=== PATIENT | male | born 1980 | race Caucasian/White ===

== ENCOUNTER 2021-05-10 23:46 | Emergency (ER) | payer OTHER, SELFPAY ==
[2021-05-10 23:55] VITALS: BP 125/59; PULSE 69; RESP 16; TEMP 36.1; O2SAT 97; BMI 34.4
--- NOTE | 2021-05-11 00:20 | ED.SKABFB ---
HPI - Skin/Abscess/Foreign Bdy General Chief complaint: Extremity Injury, Lower Stated complaint: Toe Pain Time Seen by Provider: 05/11/21 00:13 Source: patient Mode of arrival: ambulatory Limitations: no limitations History of Present Illness HPI narrative: states right great toe pain for 1 day there is slight redness to toe and has had ingrown nail in the past which she partially clipped himself and feels like his recurring again today. Denies any foot swelling or redness extending way from the toe. No fever chills. Does report that he wear steel-toed boots and that makes his symptoms worse. Onset (ago): day(s) Tetanus up to date: yes Location: R foot ( Great toe) Severity: severe ( at night it will allow him to go to sleep is throbbing) Severity scale (1-10): 8 Pain Consistency: intermittent Relieving factors: immobilization Exacerbating factors: palpation Context: none Associated symptoms: denies other symptoms Treatments prior to arrival: none Related Data Previous Rx's Medication Instructions Recorded clindamycin HCl 300 mg PO BID 7 Days #14 cap 05/11/21 ibuprofen 800 mg PO Q8H PRN #20 tab 05/11/21 oxycodone 5 mg PO Q12H PRN 3 Days #7 tab 05/11/21 Allergies Allergy/AdvReac Type Severity Reaction Status Date / Time No Known Allergies Allergy Verified 05/11/21 00:04 Review of Systems Review of Systems: Constitutional: No Weight loss, No Fever, No Chills, No Night Sweats, No Fatigue, No Malaise ENT/Mouth: No Hearing loss, No Ear Pain, No Nasal Congestion, No Sinus Pain, No Hoarseness, No sore throat, No Rhinorrhea, No Swallowing Difficulty Eyes: No Eye Pain, No Swelling, No Redness, No Foreign Body, No Discharge, No Vision Changes Cardiovascular: No Chest Pain, No SOB, No Dyspnea on Exertion, No Orthopnea, No Edema, No Palpitations Respiratory: No Cough, No Sputum, No Wheezing, No Smoke Exposure, No Dyspnea Gastrointestinal: No Nausea, No Vomiting, No Diarrhea, No Constipation, No abdominal Pain, No Hematochezia, No Melena Genitourinary: no irregular bleeding, No Dysuria, No Urinary Frequency, No Hematuria, No Urinary Incontinence, No Urgency, No Flank Pain, No Urinary Flow Changes, No Hesitancy Musculoskeletal: No joint pain, No Myalgias, No Joint Swelling Skin: No Skin Lesions, No rash , as in for HPI Neuro: No Weakness, No Numbness, No Paresthesias, No Loss of Consciousness, No Dizziness, No Headache Psych: No Social Issues Heme/Lymph: No Bruising, No Bleeding,No Lymphadenopathy Endocrine: No Polyuria, No Polydipsia, No Temperature Intolerance Yes all other systems are reviewed and are negative [facility] Past Medical History Medical History (Updated 05/11/21 @ 00:22 by Kofi Galarza NP) H/O blood clots HIV (human immunodeficiency virus infection) Social History Social History Advance Directives: No Physical Exam Vital Signs: Vital Signs: Last Vital Signs Temp 96.9 F 05/10/21 23:55 Pulse 69 05/10/21 23:55 Resp 16 05/10/21 23:55 BP 125/59 L 05/10/21 23:55 Pulse Ox 97 05/10/21 23:55 Body Mass Index 34.4 reviewed Const: General: cooperative and healthy appearing; No acute distress or intoxicated appearing Nutritional Appearance: average body habitus Orientation/consciousness: patient oriented x3 HENMT: Head: Yes normal to inspection Ears: hearing grossly normal bilaterally Eyes: General: appearance normal, both eyes and all related structures Visual Celaya: normal visual celaya by confrontation Neck: Neck: Yes normal visual inspection, No positive Brudzinski's sign, No positive Kernig's sign and No tender Thyroid: Thyroid normal Resp: Effort & Inspection: normal respiratory effort : General: Yes no CVA tenderness Back/Spine/Pelvis: Back: no CVA tenderness Skin: General skin exam: no rashes or lesions noted Neuro: General: patient oriented x3 Extrem: General: Yes normal to inspection Ankle/foot/toe images: 1. great toenail is very minimally imbedded into the skin fold. There is very minimal erythema localized to the lateral aspect. Tender palpation. Course Course Course Narrative: Localized cellulitis with ingrown toenail. Will defer on removal at this time would like to try S consult, antibiotics and follow-up with podiatry. Mass pat reviewed no concerning pattern. Discharge Plan Discharge Clinical Impression: Ingrown nail of great toe of right foot Patient Disposition: Home, Self-Care Instructions: Ingrown Nail (ED) Additional Instructions: Epson salt soaks take your antibiotics as prescribed For [id number] pain take ibuprofen/ Tylenol For severe pain take oxycodone; do not take this medication well anticipating on driving or doing any activity that requires focus and attention. Do not mix any medications or alcohol. This medication has high risk for abuse /dependence only use when absolutely needed. Follow-up with hedge trimmer for further evaluation and treatment. Return if any concerns or worsening symptoms Thank Prescriptions: New clindamycin HCl 300 mg capsule 300 mg PO BID 7 Days Qty: 14 RF: 0 ibuprofen 800 mg tablet 800 mg PO Q8H PRN (Reason: pain) Qty: 20 RF: 0 oxycodone 5 mg tablet 5 mg PO Q12H PRN (Reason: pain) 3 Days Qty: 7 RF: 0 Referrals: Reggie Mi [Physician] - 3 days
[2021-05-11] MEDS: Clindamycin HCL 300 MG CAPSULE PO (00:24)
[2021-05-11] MEDS: Ibuprofen 800 MG TABLET PO (00:24)
== END 2021-05-11 00:34 | disposition home or self-care (01) ==
PROVIDERS: Emergency Provider Internal Medicine; PCP Internal Medicine Infectious Disease
DX: L60.0 Ingrowing nail (principal); L03.115 Cellulitis of right lower limb; M79.674 Pain in right toe(s)
CPT/HCPCS: 99283; 99284

== ENCOUNTER 2023-10-09 01:57 | Inpatient (IN) | payer OTHER, SELFPAY ==
[2023-10-09] VITALS (9 sets, daily range): BP systolic 90–108; BP diastolic 45–62; PULSE 79–95; RESP 12–24; TEMP 36.3–38.3; O2SAT 92–98; BMI 36.2
[2023-10-09 02:26] LABS: MANUAL DIFF FLAG NO
[2023-10-09 02:27] LABS: Basophils Absolute Auto 0.1 X10*3/uL (0.0-0.2); Basophils Percent Auto 0.3 % (0-2); Hematocrit 46.1 % (42.0-52.0); Hemoglobin 15.5 g/dl (14.0-18.0); Imm Gran Abs Auto 0.18 X10*3/uL (0.00-0.03); Imm Gran Pct Auto 0.9 % (0.0-0.4); Lymphocytes Absolute Auto 1.3 X10*3/uL (1.2-4.9); Lymphocytes Percent Auto 6.4 % (20-40); Mean Corpuscular HGB Conc 33.6 g/dl (31.0-36.0); Mean Corpuscular Hemoglobin 32.8 pg (27.0-33.0); Mean Corpuscular Volume 97.7 fL (80.0-98.0); Mean Platelet Volume 9.8 fL (9.4-12.4); Monocytes Absolute Auto 1.3 X10*3/uL (0.1-1.2); Monocytes Percent Auto 6.1 % (2-11); Neutrophils Absolute Auto 17.8 x10*3/uL (2.0-8.3); Neutrophils Percent Auto 86.3 % (45-73); Platelet Count 152 X10*3/uL (160-400); Red Blood Count 4.72 X10*6/uL (4.60-5.80); Red Cell Distribution Width 12.5 % (11.0-16.0); White Blood Count 20.6 X10*3/uL (4.8-10.8)
[2023-10-09 02:42] LABS: Alanine Aminotransferase 21 U/L (0-40); Albumin Level 3.9 g/dL (3.5-5.0); Alkaline Phosphatase 127 U/L (39-117); Anion Gap 14 (12-20); Aspartate Amino Transferase 23 U/L (5-37); Bilirubin Total 0.8 mg/dL (0.0-1.0); Blood Urea Nitrogen 11 mg/dL (9-16); Carbon Dioxide 22 mmol/L (22-29); Chloride 105 mmol/L (96-108); Creatinine Clr Calc Pharmacy 103.9; Estimated Glomerular Filt Rate > 60; Glucose Random 102 mg/dL (60-115); Potassium 4.5 mmol/L (3.3-5.1); Sodium 136 mmol/L (135-145); Total Protein 7.2 g/dL (6.5-8.0)
--- NOTE | 2023-10-09 03:47 | ED.GENADULT ---
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 with frequent cellulitis of the leg comes here for the redness of the right leg started earlier today with lot of chills no nausea no vomiting patient feel pain traveling in the thigh area, no open wound Related Data Home Medications Medication Instructions Recorded Confirmed emtricitabine 200 mg-rilpivirine 1 tab PO QPM 10/09/23 10/09/23 25 mg-tenofovir alafenam 25 mg tablet (Odefsey) rivaroxaban 20 mg tablet (Xarelto) 20 mg PO QPM 10/09/23 10/09/23 Allergies Allergy/AdvReac Type Severity Reaction Status Date / Time No Known Allergies Allergy Verified 05/11/21 00:04 Review of Systems Review of Systems: Yes all other systems are reviewed and are negative PMFSH Past Medical History Medical History HIV (human immunodeficiency virus infection) H/O blood clots Social History Smoked in Last 30 Days: Yes Advance Directives: No Advance Directives Information Provided: Yes Physical Exam ED Vital Signs: Vital Signs - 24 hr 10/09/23 02:09 10/09/23 05:59 10/09/23 06:43 Temperature 99.8 F 99.8 F 99.6 F Pulse Rate 88 90 85 Respiratory Rate 18 20 Blood Pressure 108/53 L 102/50 L 99/56 L Pulse Oximetry 95 94 98 Oxygen Delivery Method Room Air Room Air Room Air BMI result Body Mass Index 36.2 Appearance: Alert. Oriented X3. No acute distress. ENT: Pharynx normal. Oral Mucosa moist Neck: Normal inspection. Neck supple. CVS: Normal heart rate and rhythm. Pulses normal. Respiratory: No respiratory distress. Equal air entry bilateral, no wheezing/rales/rhonchi Abdomen: Soft and nontender. Bowel sounds are present, no mass palpable, no CVA tenderness Skin: Skin warm and dry. Cellulitic changes right lower extremity Normal skin turgor. Extremities: No lower extremity edema. No calf tenderness erythema of the right lower extremity morning distal half of the leg sparing the foot Neuro: Oriented X 3. No motor deficit. No sensory deficit.No cerebellar signs , cranial nerves II-XII intact Medications Administered Generic Name Dose Route Start Last Admin Trade Name Freq PRN Reason Stop Dose Admin Cefazolin Sodium/Dextrose 2 gm in 50 mls @ 100 mls/hr 10/09/23 06:00 10/09/23 06:16 Ancef IV 100 mls/hr Q8H ESTELLA Administration Sodium Chloride 3,436.86 mls @ 3,436.86 mls/hr 10/09/23 06:45 10/09/23 06:50 Ns 30 ml/kg infuse over 1 hr (3436.86 ml) 10/09/23 07:44 3,436.86 mls/hr IV Administration .Q1H STA Discontinued Medications Generic Name Dose Route Start Last Admin Trade Name Freq PRN Reason Stop Dose Admin Sodium Chloride 1,000 mls @ 999 mls/hr 10/09/23 03:47 10/09/23 06:37 Ns IV 10/09/23 04:47 Infused .Q1H1M ONE Infusion Vancomycin HCl 2,000 mg in 500 mls @ 250 mls/hr 10/09/23 04:00 10/09/23 06:37 Vancomycin/Ns IV 10/09/23 05:59 Infused ONCE ONE Infusion Morphine Sulfate 4 mg 10/09/23 03:48 10/09/23 04:09 Morphine Sulfate 4 Mg/Ml Cartridge IVPUSH 10/09/23 03:49 4 mg ONCE ONE Administration Protocol Medical Decision Making Medical Decision Making [facility] Narrative: Patient has significant rapidly spreading cellulitis with leukocytosis will admit patient for IV antibiotics Differential Diagnosis Differential Diagnoses: The differential diagnosis associated with the presentation includes Cellulitis/bacteremia/DVT Admission/Observation Consideration of admission/observation: Escalation of care including admission/observation considered Consult Healthcare Provider Management of the patient was discussed with: Hospitalist Lab Data [facility] Lab Attestation statement: I reviewed the patient's lab results. 10/09/23 06:08 10/09/23 06:08 Labs: Lab Results 10/09/23 10/09/23 10/09/23 Range/Units 02:22 03:58 04:19 WBC 20.6 H (4.8-10.8) X10*3/uL RBC 4.72 (4.60-5.80) X10*6/uL Hgb 15.5 (14.0-18.0) g/dl Hct 46.1 (42.0-52.0) % MCV 97.7 (80.0-98.0) fL MCH 32.8 (27.0-33.0) pg MCHC 33.6 (31.0-36.0) g/dl RDW 12.5 (11.0-16.0) % Plt Count 152 L (160-400) X10*3/uL MPV 9.8 (9.4-12.4) fL Immature Gran % (Auto) 0.9 H (0.0-0.4) % Neut % (Auto) 86.3 H (45-73) % Lymph % (Auto) 6.4 L (20-40) % Kings % (Auto) 6.1 (2-11) % Eos % (Auto) 0.0 (0-4) % Baso % (Auto) 0.3 (0-2) % Lymph # (Auto) 1.3 (1.2-4.9) X10*3/uL Kings # (Auto) 1.3 H (0.1-1.2) X10*3/uL Eos # (Auto) 0.0 (0.0-0.4) X10*3/uL Baso # (Auto) 0.1 (0.0-0.2) X10*3/uL Abs Immat Gran (auto) 0.18 H (0.00-0.03) X10*3/uL Absolute Neuts (auto) 17.8 H (2.0-8.3) x10*3/uL Absolute Nucleated RBC 0.000 (0.0-0.012) X10*3/uL Nucleated RBC % (auto) 0.0 (0.0-0.2) /100WBC Smear Tech's Comments PT 20.6 H (11.1-13.3) SEC INR 1.7 H (0.9-1.1) APTT 37.6 H (26.0-36.4) SEC D-Dimer High Sensitivty < 150 NG/ML Sodium 136 (135-145) mmol/L Potassium 4.5 (3.3-5.1) mmol/L Chloride 105 (96-108) mmol/L Carbon Dioxide 22 (22-29) mmol/L Anion Gap 14 (12-20) BUN 11 (9-16) mg/dL Creatinine 1.15 (0.5-1.4) mg/dL Estim Creat Clear Calc 103.9 Estimated GFR > 60 Random Glucose 102 (60-115) mg/dL Lactic Acid 2.0 (0.5-2.0) mmol/L Calcium 9.0 (8.4-10.2) mg/dL Total Bilirubin 0.8 (0.0-1.0) mg/dL AST 23 (5-37) U/L ALT 21 (0-40) U/L Alkaline Phosphatase 127 H (39-117) U/L Total Protein 7.2 (6.5-8.0) g/dL Albumin 3.9 (3.5-5.0) g/dL 10/09/23 Range/Units 06:08 WBC 23.9 H (4.8-10.8) X10*3/uL RBC 4.22 L (4.60-5.80) X10*6/uL Hgb 14.0 (14.0-18.0) g/dl Hct 41.9 L (42.0-52.0) % MCV 99.3 H (80.0-98.0) fL MCH 33.2 H (27.0-33.0) pg MCHC 33.4 (31.0-36.0) g/dl RDW 12.6 (11.0-16.0) % Plt Count 144 L (160-400) X10*3/uL MPV 10.1 (9.4-12.4) fL Immature Gran % (Auto) 1.9 H (0.0-0.4) % Neut % (Auto) 83.1 H (45-73) % Lymph % (Auto) 7.4 L (20-40) % Kings % (Auto) 7.0 (2-11) % Eos % (Auto) 0.2 (0-4) % Baso % (Auto) 0.4 (0-2) % Lymph # (Auto) 1.8 (1.2-4.9) X10*3/uL Kings # (Auto) 1.7 H (0.1-1.2) X10*3/uL Eos # (Auto) 0.1 (0.0-0.4) X10*3/uL Baso # (Auto) 0.1 (0.0-0.2) X10*3/uL Abs Immat Gran (auto) 0.45 H (0.00-0.03) X10*3/uL Absolute Neuts (auto) 19.9 H (2.0-8.3) x10*3/uL Absolute Nucleated RBC 0.000 (0.0-0.012) X10*3/uL Nucleated RBC % (auto) 0.0 (0.0-0.2) /100WBC Smear Tech's Comments VERIFIED PT (11.1-13.3) SEC INR (0.9-1.1) APTT (26.0-36.4) SEC D-Dimer High Sensitivty NG/ML Sodium 135 (135-145) mmol/L Potassium 4.2 (3.3-5.1) mmol/L Chloride 107 (96-108) mmol/L Carbon Dioxide 22 (22-29) mmol/L Anion Gap 10 L (12-20) BUN 10 (9-16) mg/dL Creatinine 1.12 (0.5-1.4) mg/dL Estim Creat Clear Calc 106.6 Estimated GFR > 60 Random Glucose 98 (60-115) mg/dL Lactic Acid (0.5-2.0) mmol/L Calcium 8.4 D (8.4-10.2) mg/dL Total Bilirubin (0.0-1.0) mg/dL AST (5-37) U/L ALT (0-40) U/L Alkaline Phosphatase (39-117) U/L Total Protein (6.5-8.0) g/dL Albumin (3.5-5.0) g/dL Discharge Plan Discharge Clinical Impression: Cellulitis Patient Disposition: Admitted As Inpatient
[2023-10-09] MEDS: 0.9 % Sodium Chloride 1,000 ML 999 ML IV (04:08)
[2023-10-09] MEDS: Morphine Sulfate 4 MG/ML CARTRIDGE IVPUSH (04:09)
[2023-10-09] MEDS: vancomycin/NS 2,000 MG/500 ML PLAST..BAG 250 MG IV (04:09)
--- NOTE | 2023-10-09 04:18 | PC.NURSE ---
Iv placed, labs collected and sent, medicated per jan, right leg marked to monitor increase swelling and redness.
[2023-10-09 04:30] LABS: INTERNATIONAL NORM RATIO 1.7 (0.9-1.1); Prothrombin Time 20.6 SEC (11.1-13.3)
[2023-10-09 04:33] LABS: Partial Thromboplastin Time 37.6 SEC (26.0-36.4)
[2023-10-09 05:11] LABS: D Dimer High Sensitivity < 150 NG/ML
--- NOTE | 2023-10-09 05:51 | P.HPHOSP_ITS ---
History of Present Illness Date of Service: 10/09/23 Chief Complaint: Cellulitis 42-year-old male with past medical history of HIV as well as PE comes into the hospital with complaints of cellulitis of the right lower extremity. Patient reports that his leg started becoming red, hot x1 day, he fell chills, denies any fever, no chest pain no shortness of breath, no abdominal pain no nausea or vomiting, no diarrhea constipation, no urinary symptoms. On arrival to the ED patient hemodynamically stable with a temperature of 99.8 degrees Labs are significant cane for WBC count of 20.6, INR of 1.7, labs otherwise unremarkable Patient started on IV antibiotics will be admitted for further management Review of Systems 2 Review of Systems: Yes all other systems are reviewed and are negative PMFSH Medical History HIV (human immunodeficiency virus infection) H/O blood clots Smoked in Last 30 Days: Yes Advance Directives: No Advance Directives Information Provided: Yes Meds Allergies Allergy/AdvReac Type Severity Reaction Status Date / Time No Known Allergies Allergy Verified 05/11/21 00:04 Active Medications: Current Medications Vancomycin HCl (Vancomycin/Ns) 2,000 mg in 500 mls @ 250 mls/hr IV ONCE ONE Stop: 10/09/23 05:59 Last Admin: 10/09/23 04:09 Dose: 250 mls/hr Pharmacy Consult (Consult Rx Vancomycin Dosing) 1 each MISCELLANE DAILY PRN PRN Reason: Consult order Home Medications Medication Instructions Recorded Confirmed Last Taken Type emtricitabine 200 mg-rilpivirine 1 tab PO QPM 10/09/23 10/09/23 10/08/23 History 25 mg-tenofovir alafenam 25 mg tablet (Odefsey) rivaroxaban 20 mg tablet (Xarelto) 20 mg PO QPM 10/09/23 10/09/23 10/08/23 History Physical Exam 2 Vital Signs and Narrative: Vital Signs: Last Vital Signs Temp 99.8 F 10/09/23 02:09 Pulse 88 10/09/23 02:09 Resp 18 10/09/23 02:09 BP 108/53 L 10/09/23 02:09 Pulse Ox 95 10/09/23 02:09 O2 Del Method Room Air 10/09/23 02:09 BMI result Body Mass Index 36.2 Const: General: cooperative and no acute distress O rientation/consciousness: patient oriented x3 Eyes: General: appearance normal, both eyes and all related structures P upils: Equal, round and reactive pupils present Resp: Effort & Inspection: normal respiratory effort Auscultation: clear to auscultation bilaterally Cardio: Rate: regular rate Rhythm: regular rhythm GI: Palpation (GI): Soft to palpation Auscultation: normal bowel sounds Skin: Other: Right lower extremity erythema, warmth, tenderness, slightly more edematous compared to the left Neuro: General: patient oriented x3 Cranial nerves: Yes Equal, round and reactive pupils present Cognition (Neuro): normal cognition Extrem: General: Yes normal to inspection and Yes no pedal edema Results Labs 10/09/23 02:22 10/09/23 02:22 Labs: Laboratory Results - last 24 hr 10/09/23 10/09/23 10/09/23 02:22 03:58 04:19 MCV 97.7 MCH 32.8 MCHC 33.6 RDW 12.5 Plt Count 152 L MPV 9.8 Immature Gran % (Auto) 0.9 H Neut % (Auto) 86.3 H Lymph % (Auto) 6.4 L Morrow % (Auto) 6.1 Eos % (Auto) 0.0 Baso % (Auto) 0.3 Lymph # (Auto) 1.3 Morrow # (Auto) 1.3 H Eos # (Auto) 0.0 Baso # (Auto) 0.1 Abs Immat Gran (auto) 0.18 H Absolute Neuts (auto) 17.8 H Absolute Nucleated RBC 0.000 Nucleated RBC % (auto) 0.0 PT 20.6 H INR 1.7 H APTT 37.6 H D-Dimer High Sensitivty < 150 Anion Gap 14 Estim Creat Clear Calc 103.9 Estimated GFR > 60 Random Glucose 102 Lactic Acid 2.0 Calcium 9.0 Total Bilirubin 0.8 AST 23 ALT 21 Alkaline Phosphatase 127 H Total Protein 7.2 Albumin 3.9 Assessment and Plan (1) Acute cellulitis: Status: Acute Plan This is a 42-year-old male with history of DVT/PE, HIV who comes into the hospital with complaints of cellulitis #Acute cellulitis of right lower extremity - has leukocytosis, low-grade fever - will treat with IV antibiotics - follow cultures # history of PE - continue anticoagulation # history of HIV - continue Odefsev DVT prophylaxis: Xarelto Quality Stroke Does the patient have a stroke diagnosis?: No VTE Prior VTE?: No VTE Risk Level:: Medical - low VTE Device Contraindication: Treatment Not Indicated VTE Drug Contraindication: Treatment Not Indicated
[2023-10-09] MEDS: ceFAZolin Sodium/Dextrose,Iso 2 GM/50 ML PIGGYBACK IV ×3 (06:16→21:56)
--- NOTE | 2023-10-09 06:17 | PC.NURSE ---
pt medicated per mar and resting in bed.
[2023-10-09 06:20] LABS: Basophils Absolute Auto 0.1 X10*3/uL (0.0-0.2); Basophils Percent Auto 0.4 % (0-2); Eosinophils Absolute Auto 0.1 X10*3/uL (0.0-0.4); Eosinophils Percent Auto 0.2 % (0-4); Hematocrit 41.9 % (42.0-52.0); Imm Gran Abs Auto 0.45 X10*3/uL (0.00-0.03); Imm Gran Pct Auto 1.9 % (0.0-0.4); Lymphocytes Absolute Auto 1.8 X10*3/uL (1.2-4.9); Lymphocytes Percent Auto 7.4 % (20-40); MANUAL DIFF FLAG SCAN; Mean Corpuscular HGB Conc 33.4 g/dl (31.0-36.0); Mean Corpuscular Hemoglobin 33.2 pg (27.0-33.0); Mean Corpuscular Volume 99.3 fL (80.0-98.0); Mean Platelet Volume 10.1 fL (9.4-12.4); Monocytes Absolute Auto 1.7 X10*3/uL (0.1-1.2); Neutrophils Absolute Auto 19.9 x10*3/uL (2.0-8.3); Neutrophils Percent Auto 83.1 % (45-73); Platelet Count 144 X10*3/uL (160-400); Red Blood Count 4.22 X10*6/uL (4.60-5.80); Red Cell Distribution Width 12.6 % (11.0-16.0); SCAN SMEAR FLAG 1; White Blood Count 23.9 X10*3/uL (4.8-10.8)
--- NOTE | 2023-10-09 06:23 | PC.NURSE ---
Medicated pt mar
[2023-10-09 06:37] LABS: Anion Gap 10 (12-20); Blood Urea Nitrogen 10 mg/dL (9-16); Calcium 8.4 mg/dL (8.4-10.2); Carbon Dioxide 22 mmol/L (22-29); Chloride 107 mmol/L (96-108); Creatinine Clr Calc Pharmacy 106.6; Estimated Glomerular Filt Rate > 60; Glucose Random 98 mg/dL (60-115); Potassium 4.2 mmol/L (3.3-5.1); Sodium 135 mmol/L (135-145)
[2023-10-09 06:41] LABS: SLIDE REVIEW VERIFIED
--- NOTE | 2023-10-09 07:02 | PC.NURSE ---
notified Dr. Wallace, of pt low blood pressure, new orders given, per Dr. Wallace okay to hang 2 liter first and then the remaining fluid, reported to Tori Tesfaye
[2023-10-09 07:29] LABS: Lactic Acid 1.7 mmol/L (0.5-2.0)
--- NOTE | 2023-10-09 07:36 | PHA.MEDREC ---
Pharmacy Consult ? Medication Reconciliation Pharmacy has completed the medication reconciliation. spoke with patient to confirm medications. Reports that he last took both of them yesterday at 6pm. He currently has both medications with him in the room.
--- NOTE | 2023-10-09 08:47 | HO.PM.IMPN ---
Subjective Subjective Date of Service: 10/09/23 Interval History: chills Physical Exam Vital Signs: Vital Signs: Last Vital Signs Temp 99.6 F 10/09/23 06:43 Pulse 95 10/09/23 07:10 Resp 12 10/09/23 07:10 BP 105/62 10/09/23 07:10 Pulse Ox 98 10/09/23 06:43 O2 Del Method Room Air 10/09/23 06:43 BMI result Body Mass Index 36.2 General: AO X 3, chills Resp: CTA bilateral, no accessory muscles used CVS: S1,S2,RRR GI: soft, non tender, non distended Neuro: motor grossly intact, alert Psych: appropriate affect, appropriate insight rle erythema, warmth Objective Data Active Medications Acetaminophen (Acetaminophen 325 Mg Tablet) 650 mg PO Q6H PRN PRN Reason: Pain, Mild (Pain Scale 1-3) Docusate Sodium (Docusate Sodium 100 Mg Capsule) 100 mg PO DAILY PRN PRN Reason: Constipation Cefazolin Sodium/Dextrose (Ancef) 2 gm in 50 mls @ 100 mls/hr IV Q8H [facility] Last Infusion: 10/09/23 08:10 Dose: Infused Documented By: LEELA Non-Formulary Medication ([id number]-Ofodqr Ala [Odefsey]) 1 tab PO DAILY@1800 [facility] Ondansetron HCl (Ondansetron Hcl 4 Mg/2 Ml Vial) 4 mg IVPUSH Q8H PRN PRN Reason: Nausea and Vomiting Rivaroxaban (Rivaroxaban 20 Mg Tablet) 20 mg PO DAILY@1700 [facility] Sodium Chloride (0.9 % Sodium Chloride Flush 3 Ml Syringe) 3 ml IVFLUSH QSHIFT [facility] Labs 10/09/23 06:08 10/09/23 06:08 Labs: Laboratory Results - last 24 hr 10/09/23 10/09/23 10/09/23 02:22 03:58 04:19 MCV 97.7 MCH 32.8 MCHC 33.6 RDW 12.5 Plt Count 152 L MPV 9.8 Immature Gran % (Auto) 0.9 H Neut % (Auto) 86.3 H Lymph % (Auto) 6.4 L Terrell % (Auto) 6.1 Eos % (Auto) 0.0 Baso % (Auto) 0.3 Lymph # (Auto) 1.3 Terrell # (Auto) 1.3 H Eos # (Auto) 0.0 Baso # (Auto) 0.1 Abs Immat Gran (auto) 0.18 H Absolute Neuts (auto) 17.8 H Absolute Nucleated RBC 0.000 Nucleated RBC % (auto) 0.0 Smear Tech's Comments PT 20.6 H INR 1.7 H APTT 37.6 H D-Dimer High Sensitivty < 150 Anion Gap 14 Estim Creat Clear Calc 103.9 Estimated GFR > 60 Random Glucose 102 Lactic Acid 2.0 Calcium 9.0 Total Bilirubin 0.8 AST 23 ALT 21 Alkaline Phosphatase 127 H Total Protein 7.2 Albumin 3.9 10/09/23 10/09/23 06:08 07:10 MCV 99.3 H MCH 33.2 H MCHC 33.4 RDW 12.6 Plt Count 144 L MPV 10.1 Immature Gran % (Auto) 1.9 H Neut % (Auto) 83.1 H Lymph % (Auto) 7.4 L Terrell % (Auto) 7.0 Eos % (Auto) 0.2 Baso % (Auto) 0.4 Lymph # (Auto) 1.8 Terrell # (Auto) 1.7 H Eos # (Auto) 0.1 Baso # (Auto) 0.1 Abs Immat Gran (auto) 0.45 H Absolute Neuts (auto) 19.9 H Absolute Nucleated RBC 0.000 Nucleated RBC % (auto) 0.0 Smear Tech's Comments VERIFIED PT INR APTT D-Dimer High Sensitivty Anion Gap 10 L Estim Creat Clear Calc 106.6 Estimated GFR > 60 Random Glucose 98 Lactic Acid 1.7 Calcium 8.4 D Total Bilirubin AST ALT Alkaline Phosphatase Total Protein Albumin Assessment and Plan (1) Cellulitis: Status: Acute Plan 42-year-old male with past medical history of HIV, DVT/PE presented with right lower extremity erythema Right lower extremity cellulitis Continue IV Ancef, follow-up cultures History DVT and PE Continue Xarelto History of HIV Continue HAART Full code Reason continue hospitalization: Patient high risk for progression of sepsis due to HIV, leukocytosis, active chills, continue IV antibiotics and following up cultures Quality Stroke Does the patient have a stroke diagnosis?: No VTE Prior VTE?: No VTE Risk Level:: Medical - low VTE Device Contraindication: Treatment Not Indicated VTE Drug Contraindication: Treatment Not Indicated
--- NOTE | 2023-10-09 09:28 | PC.NURSE ---
HR up to 189 unsustained. Provider notified.
[2023-10-09] MEDS: Acetaminophen 325 MG TABLET 650 MG PO (13:08)
[2023-10-09] MEDS: Rivaroxaban 20 MG TABLET PO (18:02)
[2023-10-09] MEDS: Nicotine 21 MG PATCH.TD24 TRANSDERMA (18:34)
[2023-10-09] MEDS: 0.9 % Sodium Chloride Flush 3 ML SYRINGE IVFLUSH (21:56)
[2023-10-10 03:48] VITALS: BP 108/63; PULSE 77; RESP 18; TEMP 36.2; O2SAT 94
[2023-10-10] MEDS: ceFAZolin Sodium/Dextrose,Iso 2 GM/50 ML PIGGYBACK IV (05:52)
[2023-10-10 06:41] LABS: Anion Gap 10 (12-20); Blood Urea Nitrogen 8 mg/dL (9-16); Calcium 8.6 mg/dL (8.4-10.2); Carbon Dioxide 23 mmol/L (22-29); Chloride 108 mmol/L (96-108); Creatinine Clr Calc Pharmacy 132.7; Estimated Glomerular Filt Rate > 60; Glucose Fasting 93 mg/dL (60-99); Hematocrit 42.4 % (42.0-52.0); Hemoglobin 14.3 g/dl (14.0-18.0); Mean Corpuscular HGB Conc 33.7 g/dl (31.0-36.0); Mean Corpuscular Hemoglobin 33.1 pg (27.0-33.0); Mean Corpuscular Volume 98.1 fL (80.0-98.0); Mean Platelet Volume 10.6 fL (9.4-12.4); Platelet Count 126 X10*3/uL (160-400); Potassium 3.9 mmol/L (3.3-5.1); Red Blood Count 4.32 X10*6/uL (4.60-5.80); Red Cell Distribution Width 12.7 % (11.0-16.0); Sodium 137 mmol/L (135-145); White Blood Count 12.6 X10*3/uL (4.8-10.8)
--- NOTE | 2023-10-10 07:35 | PM.DS ---
DS: Providers Provider Date of Service: 10/10/23 Date of admission: 10/09/23 06:48 Primary care physician: Tapan Elena MD DS: Diagnosis Discharge Diagnosis (1) Cellulitis: Status: Acute DS: Summary Hospital Course Hospital Course: from initial hpi: 42-year-old male with past medical history of HIV as well as PE comes into the hospital with complaints of cellulitis of the right lower extremity. Patient reports that his leg started becoming red, hot x1 day, he fell chills, denies any fever, no chest pain no shortness of breath, no abdominal pain no nausea or vomiting, no diarrhea constipation, no urinary symptoms. On arrival to the ED patient hemodynamically stable with a temperature of 99.8 degrees Labs are significant cane for WBC count of 20.6, INR of 1.7, labs otherwise unremarkable Patient started on IV antibiotics will be admitted for further management hospital course: Patient was admitted for sepsis due to right lower extremity cellulitis. He was treated with IV Ancef. Sepsis resolved. Cellulitis improved. Cultures were negative. He will be discharged on 5 more days of Keflex. For history of DVT and PE he was continued on Xarelto. For history of HIV he was continued on haart. Time Attestation Discharge coordination time: Greater than 30 minutes Quality: Safe Use of Opioids Does Pt have an Active Cancer Diagnosis on the Problem List?: No Quality: Stroke Does the patient have a stroke diagnosis?: No Physical Exam Vital Signs: Vital Signs: Last Vital Signs Temp 97.1 F 10/10/23 03:48 Pulse 77 10/10/23 03:48 Resp 18 10/10/23 03:48 BP 108/63 10/10/23 03:48 Pulse Ox 94 10/10/23 03:48 O2 Del Method Room Air 10/10/23 03:48 BMI result Body Mass Index 36.2 improving rle erythema DS: Data Data Completed and Pending Labs on day of discharge: Laboratory Results - last 24 hr 10/10/23 05:45 WBC 12.6 H RBC 4.32 L Hgb 14.3 Hct 42.4 MCV 98.1 H MCH 33.1 H MCHC 33.7 RDW 12.7 Plt Count 126 L MPV 10.6 Absolute Nucleated RBC 0.000 Nucleated RBC % (auto) 0.0 Sodium 137 Potassium 3.9 Chloride 108 Carbon Dioxide 23 Anion Gap 10 L BUN 8 L Creatinine 0.90 Estim Creat Clear Calc 132.7 Estimated GFR > 60 Fasting Glucose 93 Calcium 8.6 Preliminary micro results at discharge 10/09/23 04:18 Blood Culture - Preliminary Blood - Venous No growth after 24 hours. 10/09/23 03:59 Blood Culture - Preliminary Blood - Venous No growth after 24 hours. Discharge Plan Discharge Anticipated Discharge Date/Time: 10/10/23 07:34 Patient Disposition: Home, Self-Care Discharge Diagnosis: cellulitis Referrals: Tapan Elena MD [Primary Care Provider] - 1 Week Discharge Medications: New cephalexin 500 mg capsule 500 mg PO Q12H Qty: 10 0RF Continued Xarelto 20 mg tablet 20 mg PO QPM Odefsey 200-25-25 mg tablet 1 tab PO QPM Discharge Orders: Discharge Order (Routine); Ordered 10/10/23 Ordered By: Carlos Roche Diet: Advance to usual diet Activity on Discharge: As tolerated Stand Alone Forms: Patient Portal Discharge page Care Plan Goals: recovery Health Concerns: cellulitis Plan of Treatment: 5 more days keflex Assessment: see above
--- NOTE | 2023-10-10 07:49 | MHC.CM.PN ---
MD order for home, self-care prior to CM interview. CM acknowledge.
== END 2023-10-10 08:00 | disposition home or self-care (01) | DRG 872 ==
LOC: HO.ED 03:46 → HO.EDOVER 05:56 → HO.S3 07:28
PROVIDERS: Admitting Provider Internal Medicine; Emergency Provider Internal Medicine; PCP Internal Medicine Infectious Disease; Visit Provider Internal Medicine
DX: A41.9 Sepsis, unspecified organism (principal); L03.115 Cellulitis of right lower limb; Z21 Asymptomatic human immunodeficiency virus [HIV] infection status; F17.210 Nicotine dependence, cigarettes, uncomplicated; Z86.711 Personal history of pulmonary embolism; Z71.6 Tobacco abuse counseling; Z79.01 Long term (current) use of anticoagulants; Z79.899 Other long term (current) drug therapy
CPT/HCPCS: 36415; 80048; 80053; 83605; 85025; 85027; 85379; 85610; 85730; 87040; 99221; 99285; J0690; J2270; J3370

== ENCOUNTER → 2023-10-09 03:16 | Outpatient (BNV) | payer OTHER, SELFPAY | PROVIDERS: Emergency Provider Internal Medicine; PCP Internal Medicine Infectious Disease; Visit Provider Internal Medicine | DX: L03.115 Cellulitis of right lower limb (principal); B20 Human immunodeficiency virus [HIV] disease | CPT/HCPCS: 99222; 99239; 99499 ==

== ENCOUNTER 2024-07-10 19:21 | Emergency (ER) | payer OTHER, SELFPAY ==
--- NOTE | 2024-07-10 19:32 | ED_ITS ---
HPI - General Adult General Chief complaint: Skin/Abscess/Foreign Body Stated complaint: facial abscess Time Seen by Provider: 07/11/24 00:22 Source: patient Mode of arrival: ambulatory Limitations: no limitations History of Present Illness ED Provider: Dr. Judge HPI narrative: what started out as a bug bite or pimple, patient tried to pop it but nothing came out, now with increasing swelling over he past 3 days, no drainage no fever Onset (ago): day(s) Related Data Home Medications ?Medication ?Instructions ?Recorded ?Confirmed emtricitabine 200 mg-rilpivirine 1 tab PO QPM 10/09/23 10/09/23 25 mg-tenofovir alafenam 25 mg tablet (Odefsey) rivaroxaban 20 mg tablet (Xarelto) 20 mg PO QPM 10/09/23 10/09/23 Previous Rx's ?Medication ?Instructions ?Recorded cephalexin 500 mg capsule 500 mg PO Q12H #10 caps 10/10/23 amoxicillin 875 mg-potassium 1 tab PO BID #14 tabs 07/11/24 clavulanate 125 mg tablet Allergies Allergy/AdvReac Type Severity Reaction Status Date / Time No Known Allergies Allergy Verified 07/10/24 19:34 Review of Systems 2 Review of Systems: Yes all other systems are reviewed and are negative Neurologic: Denies Sensory deficit (Neuro) PMFSH Past Medical History Medical History HIV (human immunodeficiency virus infection) H/O blood clots Social History Social History Household Members: Family Housing: House Do you presently have visiting nurse or other home services: No Patient Tobacco Use Status: Current everyday Tobacco user Tobacco use type: Cigarette e-Cigarette/Vaping Use: Never Used Advance Directives: No Advance Directives Information Provided: No Do you have a plan to hurt others: No Plan Physical Exam ED Vital Signs: Vital Signs - 24 hr 07/10/24 19:33 07/10/24 23:41 Temperature 98.1 F 97.9 F Pulse Rate 66 60 Respiratory Rate 18 16 Blood Pressure 118/68 105/70 Pulse Oximetry 97 99 Oxygen Delivery Method Room Air Room Air BMI result Body Mass Index 36.6 Const General: healthy appearing Nutritional Appearance: average body habitus Orientation/consciousness: oriented to person and patient oriented x3 Limitations: no limitations HENMT Head: Yes normal to inspection Ears: external ears normal General nose exam: Normal external nose present Mouth: Normal oral and palatal mucosa present and oropharynx normal Throat: Yes posterior oropharynx normal Eyes General: appearance normal, both eyes and all related structures Neck Neck: Yes normal visual inspection Chest Chest palpation & inspection: normal inspection of the chest Resp Auscultation: clear to auscultation bilaterally Cardio Jugular venous distension: no JVD Rate: regular rate Rhythm: regular rhythm Heart sounds: S1 normal heart sound present and S2 normal heart sound present GI Inspection: Yes normal to inspection Palpation (GI): Soft to palpation, nontender and No hepatosplenomegaly present Auscultation: normal bowel sounds General: Yes no CVA tenderness Back/Spine/Pelvis Back: no CVA tenderness Skin Other: left facial swelling over left mandible, with fluctuance Neuro General: oriented to person and patient oriented x3 Cranial nerves: Yes CN's II-XII intact bilaterally Motor exam (neuro): 5/5 motor strength present throughout Sensory Exam: No Sensory deficit (Neuro) Extrem General: Yes normal to inspection Psych Appearance: grossly normal Course Course Course Narrative: RME performed by Carolyn Thompson PA-C. Patient is a 43 year old assigned male at presenting to the emergency department with a left facial abscess. Patient states that starting 3 days ago he began to have left sided facial swelling. Patient states that he attempted to pop the area but was unable to do so. Detailed physical exam and review of systems are deferred to the engraver signature. Labs ordered. Patient placed back in the waiting room pending room availability and results. Reevaluation(s) Reevaluation #1: procedure: patient prepped and draped in sterile fashion, 1% lido used for anesthesia, 11 blade used, pus removed, packing placed Time: 00:55 Medical Decision Making Differential Diagnosis Differential Diagnoses: The differential diagnosis associated with the presentation includes (facial abscess, facial cellulitis) Lab Data 07/10/24 19:47 07/10/24 19:47 Labs: Lab Results 07/10/24 Range/Units 19:47 WBC 11.5 H (4.8-10.8) X10*3/uL RBC 4.61 (4.60-5.80) X10*6/uL Hgb 15.7 (14.0-18.0) g/dl Hct 45.3 (42.0-52.0) % MCV 98.3 H (80.0-98.0) fL MCH 34.1 H (27.0-33.0) pg MCHC 34.7 (31.0-36.0) g/dl RDW 12.7 (11.0-16.0) % Plt Count 159 L D (160-400) X10*3/uL MPV 9.6 (9.4-12.4) fL Immature Gran % (Auto) 0.3 (0.0-0.4) % Neut % (Auto) 68.0 (45-73) % Lymph % (Auto) 27.0 (20-40) % Newberry % (Auto) 4.2 (2-11) % Eos % (Auto) 0.1 (0-4) % Baso % (Auto) 0.4 (0-2) % Lymph # (Auto) 3.1 (1.2-4.9) X10*3/uL Newberry # (Auto) 0.5 (0.1-1.2) X10*3/uL Eos # (Auto) 0.0 (0.0-0.4) X10*3/uL Baso # (Auto) 0.1 (0.0-0.2) X10*3/uL Abs Immat Gran (auto) 0.04 H (0.00-0.03) X10*3/uL Absolute Neuts (auto) 7.8 (2.0-8.3) x10*3/uL Absolute Nucleated RBC 0.000 (0.0-0.012) X10*3/uL Nucleated RBC % (auto) 0.0 (0.0-0.2) /100WBC ESR 6 (0-15) MM/HR Sodium 141 (135-145) mmol/L Potassium 3.9 (3.3-5.1) mmol/L Chloride 107 (96-108) mmol/L Carbon Dioxide 22 (22-29) mmol/L Anion Gap 16 (12-20) BUN 12 (9-16) mg/dL Creatinine 0.97 (0.5-1.4) mg/dL Estim Creat Clear Calc 122.5 Estimated GFR > 60 Random Glucose 137 H (60-115) mg/dL Calcium 9.3 D (8.4-10.2) mg/dL Total Bilirubin 0.7 (0.0-1.0) mg/dL AST 20 (5-37) U/L ALT 22 (0-40) U/L Alkaline Phosphatase 116 (39-117) U/L C-Reactive Protein 1.05 H (< or = 0.50) mg/dL Total Protein 6.8 (6.5-8.0) g/dL Albumin 3.9 (3.5-5.0) g/dL Hold Red Top See Note Independent Interpretation I performed an independent interpretation of an: Ultrasound (bedside US done by me shows fluid filled inside facial lump) Chronic Conditions Patient?s care impacted by: Other (HIV) Discharge Plan Discharge Clinical Impression: Abscess of skin or subcutaneous tissue Patient Disposition: Home, Self-Care Additional Instructions: remove packing in 2 days Prescriptions: New amoxicillin-pot clavulanate 875-125 mg tablet 1 tab PO BID Qty: 14 0RF No Action Xarelto 20 mg tablet 20 mg PO QPM Odefsey 200-25-25 mg tablet 1 tab PO QPM cephalexin 500 mg capsule 500 mg PO Q12H Qty: 10 0RF Referrals: Tapan Elena MD [Primary Care Provider] - 5 days Print Language: Stateless
[2024-07-10 19:33] VITALS: BP 118/68; PULSE 66; RESP 18; TEMP 36.7; O2SAT 97; BMI 36.6
[2024-07-10 19:51] LABS: MANUAL DIFF FLAG NO
[2024-07-10 19:56] LABS: Basophils Absolute Auto 0.1 X10*3/uL (0.0-0.2); Basophils Percent Auto 0.4 % (0-2); Eosinophils Percent Auto 0.1 % (0-4); Hematocrit 45.3 % (42.0-52.0); Hemoglobin 15.7 g/dl (14.0-18.0); Imm Gran Abs Auto 0.04 X10*3/uL (0.00-0.03); Imm Gran Pct Auto 0.3 % (0.0-0.4); Lymphocytes Absolute Auto 3.1 X10*3/uL (1.2-4.9); Mean Corpuscular HGB Conc 34.7 g/dl (31.0-36.0); Mean Corpuscular Hemoglobin 34.1 pg (27.0-33.0); Mean Corpuscular Volume 98.3 fL (80.0-98.0); Mean Platelet Volume 9.6 fL (9.4-12.4); Monocytes Absolute Auto 0.5 X10*3/uL (0.1-1.2); Monocytes Percent Auto 4.2 % (2-11); Neutrophils Absolute Auto 7.8 x10*3/uL (2.0-8.3); Platelet Count 159 X10*3/uL (160-400); Red Blood Count 4.61 X10*6/uL (4.60-5.80); Red Cell Distribution Width 12.7 % (11.0-16.0); White Blood Count 11.5 X10*3/uL (4.8-10.8)
[2024-07-10 20:11] LABS: Alanine Aminotransferase 22 U/L (0-40); Albumin Level 3.9 g/dL (3.5-5.0); Alkaline Phosphatase 116 U/L (39-117); Anion Gap 16 (12-20); Aspartate Amino Transferase 20 U/L (5-37); Bilirubin Total 0.7 mg/dL (0.0-1.0); Blood Urea Nitrogen 12 mg/dL (9-16); C Reactive Protein 1.05 mg/dL (< or = 0.50); Calcium 9.3 mg/dL (8.4-10.2); Carbon Dioxide 22 mmol/L (22-29); Chloride 107 mmol/L (96-108); Creatinine Clr Calc Pharmacy 122.5; Estimated Glomerular Filt Rate > 60; Glucose Random 137 mg/dL (60-115); Potassium 3.9 mmol/L (3.3-5.1); Sodium 141 mmol/L (135-145); Total Protein 6.8 g/dL (6.5-8.0)
[2024-07-10 20:32] LABS: Erythrocyte Sedimentation Rate 6 MM/HR (0-15)
[2024-07-10 23:41] VITALS: BP 105/70; PULSE 60; RESP 16; TEMP 36.6; O2SAT 99
[2024-07-11] MEDS: Amoxicillin/Potassium Clav 875 MG TABLET PO (01:11)
[2024-07-11] MEDS: Lidocaine HCl 1 % 10 ML VIAL SUBCUT (01:12)
[2024-07-11 01:16] VITALS: BP 105/70; PULSE 60; RESP 16; TEMP 36.6; O2SAT 99
== END 2024-07-11 01:17 | disposition home or self-care (01) ==
PROVIDERS: Physician Assistant Medical; Emergency Provider Emergency Medicine; PCP Internal Medicine Infectious Disease
DX: L02.01 Cutaneous abscess of face (principal); Z79.899 Other long term (current) drug therapy
CPT/HCPCS: 36415; 80053; 85025; 85652; 86140; 99282; 99283

== ENCOUNTER 2024-11-15 07:04 | Emergency (ER) | payer OTHER, SELFPAY ==
--- NOTE | ~2024-11-15 | XR_ITS ---
CLINICAL HISTORY: trauma, pain, tenderness 4 views sacrum and coccyx Comparison: None Findings No acute fractures. No significant degenerative change. No erosions. IMPRESSION: No acute findings This document has been electronically signed by: Stewart Wright MD on 11/15/2024 07:55:36
[2024-11-15 07:07] VITALS: BP 118/65; PULSE 65; RESP 18; TEMP 36.4; O2SAT 95; BMI 38.5
--- NOTE | 2024-11-15 07:30 | ED_ITS ---
HPI - General Adult General Chief complaint: Fall Stated complaint: fall lower back pain tail bone Time Seen by Provider: 11/15/24 07:30 History of Present Illness ED Provider: Gordo AMARO narrative: The patient is a 44-year-old male with a history of HIV on anti-retroviral medications. He also has a history of a blood clot and is on rivaroxaban. The patient says that 4 days ago, on Wednesday evening, he was at a gas station when he slipped on ice and landed on his buttocks. He has had ongoing pain in his sacral area ever since. 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 He finds this uncomfortable. He says that he went to [facility] 2 days ago but there was a very long wait and he left. Comes today because he just wants to make sure that he has not broken any bones. He says that he has no trouble controlling his bowel or bladder. He feels he is emptying his bladder fully. He has no pain that goes down his legs. He has no numbness or tingling or weakness in his legs or feet. He spent yesterday driving. He found the sitting uncomfortable in the region of his coccyx and sacrum but did not have any difficulty driving otherwise. Related Data Home Medications ?Medication ?Instructions ?Recorded ?Confirmed emtricitabine 200 mg-rilpivirine 1 tab PO QPM 10/09/23 10/09/23 25 mg-tenofovir alafenam 25 mg tablet (Odefsey) rivaroxaban 20 mg tablet (Xarelto) 20 mg PO QPM 10/09/23 10/09/23 Previous Rx's ?Medication ?Instructions ?Recorded cephalexin 500 mg capsule 500 mg PO Q12H #10 caps 10/10/23 amoxicillin 875 mg-potassium 1 tab PO BID #14 tabs 07/11/24 clavulanate 125 mg tablet Allergies Allergy/AdvReac Type Severity Reaction Status Date / Time No Known Allergies Allergy Verified 11/15/24 07:11 Review of Systems Review of Systems: Yes all other systems are reviewed and are negative [facility] Past Medical History Medical History HIV (human immunodeficiency virus infection) H/O blood clots Social History Social History Household Members: Family Housing: House Do you presently have visiting nurse or other home services: No Patient Tobacco Use Status: Current everyday Tobacco user Tobacco use type: Cigarette e-Cigarette/Vaping Use: Never Used Physical Exam ED Vital Signs: Vital Signs - 24 hr 11/15/24 07:07 11/15/24 08:48 Temperature 97.6 F 97.6 F Pulse Rate 65 65 Respiratory Rate 18 18 Blood Pressure 118/65 118/65 Pulse Oximetry 95 95 Oxygen Delivery Method Room Air Room Air BMI result Body Mass Index 38.5 Const Other: The patient is awake and alert with a normal mental status. He moves around stiffly and slowly but seems steady and does not seem in acute distress. HENMT Other: No signs of trauma to the head or the face. Eyes General: appearance normal, both eyes and all related structures Neck Other: Moving his neck easily Resp Effort & Inspection: normal respiratory effort Auscultation: clear to auscultation bilaterally Cardio Rate: regular rate Rhythm: regular rhythm Heart sounds: S1 normal heart sound present and S2 normal heart sound present GI Other: Abdomen is soft and nontender Back/Spine/Pelvis Other: The patient has no definite vertebral tenderness in the lumbar region. He is tender in the sacrum and the coccygeal region. Skin Other: Skin is intact. I do not appreciate any bruising in the region of the sacrum or coccyx. Neuro Other: The patient is awake and alert with a normal mental status. He has intact strength and sensation in all 4 extremities. Extrem Other: The patient has good range of motion of the hips in the knees and ankles. Medical Decision Making Medical Decision Making MDM Narrative: The patient presents for evaluation of a fall that occurred 4 days ago. He landed on his buttocks and seems to have pain in the region of the sacrum and the coccyx. He is on rivaroxaban. Clinically the patient looks well. He moves slightly stiffly but otherwise seems to be moving well and safely. He has no neurological complaints. No bowel or bladder complaints. An x-ray of the sacrum and coccyx was read as showing no fracture. Patient was reassured that he seems to have no fracture and that his pain is likely related to bruising. Since he looks fairly well I do not think he has any pathological bruising or internal bleeding related to his rivaroxaban. He will be discharged with reassurance. He should us acetaminophen as needed for discomfort. He was also advised to get a doughnut shaped pillow. Discharge Plan Discharge Clinical Impression: Contusion of sacrum Patient Disposition: Home, Self-Care Additional Instructions: The x-ray of your sacrum and your coccyx does not show any fracture. You may use acetaminophen (Tylenol) as needed for pain. You may take 2 extra-strength tablets (2 x 500 mg) to 3 times a day as needed for pain. Many pharmacies cell a doughnut shaped pillow that might be helpful for sitting. Considered buying one of these inflatable pillows. Follow up with your regular doctor if you have ongoing concerns. If you have any worsening pain or develop any significant new symptoms please return to the emergency room for further evaluation. Prescriptions: No Action Xarelto 20 mg tablet 20 mg PO QPM Odefsey 200-25-25 mg tablet 1 tab PO QPM cephalexin 500 mg capsule 500 mg PO Q12H Qty: 10 0RF amoxicillin-pot clavulanate 875-125 mg tablet 1 tab PO BID Qty: 14 0RF Referrals: Tapan Elena MD [Primary Care Provider] - (Sacral contusion) Interventions: ED Discharge Assessment Last Done: 11/15/24 08:48 Discharge Date/Time: 11/15/24 08:49 Print Language: German
[2024-11-15 08:48] VITALS: BP 118/65; PULSE 65; RESP 18; TEMP 36.4; O2SAT 95
== END 2024-11-15 08:49 | disposition home or self-care (01) ==
PROVIDERS: Emergency Provider Emergency Medicine; PCP Internal Medicine Infectious Disease
DX: S30.0XXA Contusion of lower back and pelvis, initial encounter (principal); W00.0XXA Fall on same level due to ice and snow, initial encounter; M54.50 Low back pain, unspecified; B20 Human immunodeficiency virus [HIV] disease; Z86.718 Personal history of other venous thrombosis and embolism; Z79.01 Long term (current) use of anticoagulants; Y93.89 Activity, other specified; Y92.524 Gas station as the place of occurrence of the external cause; Y99.9 Unspecified external cause status
CPT/HCPCS: 72220; 99282; 99283

== ENCOUNTER → 2024-11-15 07:36 | Outpatient (BNV) | payer OTHER, SELFPAY | PROVIDERS: Emergency Provider Emergency Medicine; PCP Internal Medicine Infectious Disease; Visit Provider Radiology Vascular & Interventional Radiology | DX: G89.11 Acute pain due to trauma (principal) | CPT/HCPCS: 72220 ==